=== PATIENT | female | born 1945 | race Caucasian/White ===

== ENCOUNTER → 2017-04-16 | Outpatient (CLI) | payer OTHER | LOC: BMCIMAGING 08:48 | PROVIDERS: ATTEND Internal Medicine | DX: Z12.31 Encounter for screening mammogram for malignant neoplasm of breast (principal) | CPT/HCPCS: G0202 ==

== ENCOUNTER → 2017-04-23 | Outpatient (CLI) | payer OTHER | LOC: BMCIMAGING 10:47 | PROVIDERS: ATTEND Internal Medicine | DX: R92.8 Other abnormal and inconclusive findings on diagnostic imaging of breast (principal) | CPT/HCPCS: G0206 ==

== ENCOUNTER → 2017-08-19 | Outpatient (CLI) | payer OTHER | LOC: BMCIMAGING 14:49 | PROVIDERS: ATTEND Orthopaedic Surgery Hand Surgery | DX: M25.711 Osteophyte, right shoulder (principal); M25.811 Other specified joint disorders, right shoulder ==

== ENCOUNTER → 2017-09-29 | Outpatient (CLI) | payer OTHER | LOC: FIMAGING 10:26 | PROVIDERS: ATTEND Orthopaedic Surgery Hand Surgery | DX: M25.811 Other specified joint disorders, right shoulder (principal); S43.431A Superior glenoid labrum lesion of right shoulder, initial encounter ==

== ENCOUNTER 2017-12-01 05:51 | Inpatient (IN) | payer OTHER ==
[2017-12-01] MEDS ORDERED: TRANEXAMIC ACID 2,000 MG in NS (SYRINGE) 50 ML MISC ONE (05:55)
[2017-12-01] MEDS ORDERED: ceFAZolin 2 GM/SWFI 2 GM/20 ML SYR IVP ONE (05:55)
[2017-12-01] MEDS ORDERED: LR 1,000 ML IV ONE (05:57)
--- NOTE | 2017-12-01 06:49 | PDHPUP ---
History & Physical Update H&P update statement: This history and physical update is based on an assessment of the patient which was completed after admission or registration (within 24 hours), but prior to the surgery/procedure. H&P update: H&P reviewed & patient examined, no change in patient's condition since H&P completed
[2017-12-01] MEDS ORDERED: BUPIVACAINE/EPI 0.5% 30 ML SDV ONE ×2 (06:50→07:20)
[2017-12-01] MEDS ORDERED: BACITRACIN 50,000 UNITS/10 ML SYR IRR ONE (06:51)
[2017-12-01] MEDS ORDERED: POLYMYXIN B SULFATE 500,000 UNIT/10 ML SYR IRR ONE (06:51)
[2017-12-01] MEDS ORDERED: MIDAZOLAM 2 MG/2 ML VIAL ONE (07:08)
[2017-12-01] MEDS ORDERED: MIDAZOLAM 2 MG/2 ML VIAL IVP ONE (07:09)
--- NOTE | 2017-12-01 07:10 | PDANEPAE ---
ANE Past Medical History - Cardiovascular History Hx Hypertension: Yes Hx Arrhythmias: No Hx Chest Pain: No Hx Coronary Artery / Peripheral Vascular Disease: No Hx CHF / Valvular Disease: No Hx Palpitations: No - Pulmonary History Hx COPD: No Hx Asthma/Reactive Airway Disease: No Hx Recent Upper Respiratory Infection: No Hx Oxygen in Use at Home: No Hx Sleep Apnea: No Sleep Apnea Screening Result - Last Documented: Negative - Neurologic History Hx Cerebrovascular Accident: No Hx Seizures: No Hx Dementia: No Neurologic History Comment: hx of tia's - Endocrine History Hx Diabetes: No Obesity: mild - Renal History Hx Renal Disorders: No - Liver History Hx Hepatic Disorders: No - Neurological & Psychiatric Hx Hx Neurological and Psychiatric Disorders: No - Cancer History Hx Cancer: No - Congenital Disorder History Hx Congenital Disorders: No - GI History GERD: no Hx Gastrointestinal Disorders: No - Chronic Pain History Chronic Pain: No - Surgical History Prior Surgeries: L hip replacement ANE Review of Systems Review of Systems: - Exercise capacity METS (RN): 5 METS ANE Patient History - Allergies Allergies/Adverse Reactions: No Known Allergies Allergy (Verified 10/28/17 10:59) - Home Medications Home Medications: Acetaminophen [Arthritis Pain Relief] 650 mg PO DAILY 10/23/17 [Last Taken 11/30] Diltiazem HCl [Cartia XT 240mg] 240 mg PO DAILY 10/23/17 [Last Taken 12/01/17] Gabapentin [Neurontin 100 MG (*)] 100 mg PO DAILY 10/23/17 [Last Taken 12/01/17] Herbals/Supplements -Info Only 1 ea PO DAILY 10/23/17 [Last Taken 11/01/17] Ibuprofen [Motrin (*)] 200 mg PO DAILY 10/23/17 [Last Taken 11/30/17] Levothyroxine [Synthroid 88 mcg (*)] 88 mcg PO DAILY06 10/23/17 [Last Taken ] Polyethylene Glycol 3350 [Miralax 17 gm (*)] 17 gm PO DAILY 10/23/17 [Last Taken 11/30/17] Propylene Glycol/Peg 400 [Systane Ultra 0.4-0.3% Eye Drp] 1 drop OP HS 10/23/17 [Last Taken 11/30/17] Sertraline HCl [Zoloft 50mg (*)] 50 mg PO DAILY 10/23/17 [Last Taken 12/01/17] Venlafaxine HCl [Venlafaxine 75MG (*)] 75 mg PO DAILY 10/23/17 [Last Taken 12/01] - NPO status NPO Since - Liquids (Date): 12/01/17 NPO Since - Liquids (Time): 05:15 NPO Since - Solids (Date): 11/30/17 NPO Since - Solids (Time): 19:30 - Anes Hx Anes Hx: post operative nausea and vomiting - Smoking Hx Smoking Status: Former smoker Marijuana use: No - Family Anes Hx Family Hx Anesthesia Complications: none ANE Labs/Vital Signs - Vital Signs Blood Pressure: 159/88 Heart Rate: 69 Respiratory Rate: 16 O2 Sat (%): 93 Height: 165.1 cm Weight: 68.039 kg ANE Physical Exam - Airway Neck exam: FROM Mallampati Score: Class 2 Mouth exam: normal dental/mouth exam - Pulmonary Pulmonary: no respiratory distress, no rales or rhonchi, clear to auscultation - Cardiovascular Cardiovascular: regular rate and rhythym, no murmur, rub, or gallop - ASA Status ASA Status: II ANE Anesthesia Plan Anesthesia Plan: GA w LMA Regional Anesthesia: single shot NB, interscalene BP NB
[2017-12-01] MEDS ORDERED: VANCOMYCIN 1 GM VIAL ONE (07:14)
[2017-12-01] MEDS ORDERED: DEXAMETHASONE 10 MG/ML VIAL ONE (07:20)
[2017-12-01] MEDS ORDERED: fentaNYL 100 MCG/2 ML INJ ONE (07:22)
[2017-12-01] MEDS ORDERED: ONDANSETRON 4 MG/2 ML VIAL ONE ×2 (07:22→07:44)
[2017-12-01] MEDS ORDERED: LIDOCAINE 2% JELLY 5 ML TUBE ONE (07:22)
[2017-12-01] MEDS ORDERED: PROPOFOL 200 MG/20 ML VIAL ONE (07:22)
[2017-12-01] MEDS ORDERED: DEXAMETHASONE 4 MG/ML VIAL ONE (07:22)
[2017-12-01] MEDS ORDERED: LIDOCAINE 2% 5 ML SDV ONE ×2 (07:23)
[2017-12-01] MEDS ORDERED: KETOROLAC 30 MG/1 ML SDV ONE (10:36)
[2017-12-01] MEDS ORDERED: ONDANSETRON 4 MG/2 ML VIAL IVP PRN ×2 (10:43→12:05)
[2017-12-01] MEDS ORDERED: PROMETHAZINE HCL 25 MG/ML INJ IVP PRN (10:43)
[2017-12-01] MEDS ORDERED: LABETALOL HCL 5 MG/ML 20 ML MDV IVP PRN (10:43)
[2017-12-01] MEDS ORDERED: NALOXONE HCL 0.4 MG/ML INJ IVP PRN (10:43)
[2017-12-01] MEDS ORDERED: ENALAPRILAT DIHYDRATE 1.25 MG/ML VIAL IVP PRN (10:43)
[2017-12-01] MEDS ORDERED: DIAZEPAM 5 MG/ML 1 ML SYR IVP PRN (10:43)
[2017-12-01] MEDS ORDERED: LR 500 ML IV PRN (10:43)
[2017-12-01] MEDS ORDERED: ACETAMINOPHEN 500 MG TAB PO PRN (10:43)
[2017-12-01] MEDS ORDERED: fentaNYL 100 MCG/2 ML INJ IVP PRN (10:43)
[2017-12-01] MEDS ORDERED: OXYCODONE/APAP 5/325 TAB PO PRN (10:43)
[2017-12-01] MEDS ORDERED: ONDANSETRON DISINTEGRATING 4 MG TAB PO PRN (12:05)
--- NOTE | 2017-12-01 12:15 | POSTANESTH ---
Post Anesthetic Evaluation Cardiovascular Status: Similar to Pre-Op Cond Respiratory Status: Normal, Stable, Similar to Pre-op Cond. Level of Consciousness/Mental Status: Can Participate in Eval, Alert and Oriented Pain Control: Adequate, Prn Tx Ordered Nausea/Vomiting Control: Adequate, Prn Tx Ordered Complications Possibly Related to Anesthesia: None Noted (Excellent analgesia.)
[2017-12-01] MEDS ORDERED: LR 1,000 ML IV SCH (12:30)
[2017-12-01] MEDS ORDERED: ACETAMINOPHEN 325 MG TAB PO SCH (14:00)
[2017-12-01] MEDS ORDERED: ceFAZolin 2 GM/DEXTROSE 100 ML IV SCH (14:00)
[2017-12-01] MEDS: ACETAMINOPHEN 500 MG TAB PO SCH ×2 (14:57→21:45)
[2017-12-01] MEDS: ceFAZolin 2 GM/SWFI 2 GM/20 ML SYR IVP SCH ×2 (15:16→21:48)
[2017-12-01] MEDS: oxyCODONE IR 5 MG TAB PO PRN ×3 (15:35→23:49)
--- NOTE | 2017-12-01 17:36 | PDGENHP ---
History and Physical History and Physical: CC: L leg injury
[2017-12-01] MEDS: KETOROLAC 15 MG/1 ML SDV IVP SCH ×2 (18:44→23:49)
[2017-12-01] MEDS ORDERED: SYSTANE ULTRA EACHEYE SCH (21:00)
[2017-12-01] MEDS ORDERED: EYE EACHEYE SCH (21:00)
[2017-12-02] MEDS: oxyCODONE IR 5 MG TAB PO PRN ×3 (02:25→12:41)
[2017-12-02 04:37] VITALS: RESP 16
[2017-12-02] MEDS: ACETAMINOPHEN 500 MG TAB PO SCH ×2 (05:13→12:44)
[2017-12-02] MEDS: KETOROLAC 15 MG/1 ML SDV IVP SCH ×2 (05:14→12:31)
[2017-12-02] MEDS ORDERED: LEVOTHYROXINE 88 MCG TAB PO SCH (06:00)
--- NOTE | 2017-12-02 08:34 | SOAPPROG ---
SOAP Progress Note Assessment/Plan: Assessment: POD #1 s/p R TSA -doing well this am -labs and vitals wnl and stable Plan: -PT/OT this am -plan d/c home if cleared by PT 12/02/17 08:39 Subjective: Doing very well this morning. Pain has been controlled with the current regimen. C/o some sharp pain with deep inspiration when using the IS. Eager to go home. Objective: Vital Signs Temp Pulse Resp BP Pulse Ox 36.7 C 70 16 113/69 93 12/02/17 08:00 12/02/17 08:00 12/02/17 08:00 12/02/17 08:00 12/02/17 08:00 Laboratory Results 12/02/17 04:41 12/01/17 12/02/17 12/03/17 05:59 05:59 05:59 Intake Total 1615 Output Total 350 Balance 1265 Gen: NAD, resting comfortably R shoulder -dressing in place, polar care over shoulder -intact AIN/PIN/ulnar motor -sensation returning to digits -sling in place - Time Spent With Patient Time Spent With Patient: 15 min - Pending Discharge Pending Discharge Within 24 Hours: Yes Pending Discharge Date: 12/03/17 Pending Discharge Time: 11:00 ICD10 Worksheet Patient Problems: Problems Problem Status Onset Glenohumeral arthritis Acute - ICD10 Problem Qualifiers (1) Glenohumeral arthritis
[2017-12-02] MEDS ORDERED: GABAPENTIN 100 MG CAP PO SCH (09:00)
[2017-12-02] MEDS ORDERED: SERTRALINE HCL 50 MG TAB PO SCH (09:00)
[2017-12-02] MEDS ORDERED: POLYETHYLENE GLYCOL 3350 17 GM PKT PO SCH (09:00)
--- NOTE | 2017-12-02 10:36 | ASMTCMCOM ---
CM Note CM Note Notes: Patient is POD #[address] Martínez. She is well-supported at home by her Devante and daughter Denise. She will follow up with Dr Martínez at scheduled intervals and they will make an outpatient therapy plan. No d.c needs identified. Date Signed: 12/02/2017 10:36 AM Electronically Signed By:Tita Gutierres RN
[2017-12-02 11:43] VITALS: BP 121/81; PULSE 82; TEMP 97.9; O2SAT 91
[2017-12-02] MEDS: DILTIAZEM XR 240 MG CAP PO SCH ×2 (12:23→12:31)
[2017-12-02] MEDS: VENLAFAXINE HCL 75 MG TAB PO SCH ×2 (12:30→12:42)
--- NOTE | 2017-12-02 20:17 | GOP ---
[f rep st] OPERATIVE REPORT DATE OF OPERATION: 12/01/2017 SURGEON: Renzo Martínez MD PREOPERATIVE DIAGNOSIS: Right shoulder osteoarthritis. POSTOPERATIVE DIAGNOSIS: Right shoulder osteoarthritis. PROCEDURE PERFORMED: Right total shoulder arthroplasty. FINDINGS: ESTIMATED BLOOD LOSS: 350. INDICATIONS: This patient is a 72-year-old female seen and followed by me in the office for shoulder pain. She was initially treated conservatively with injections and physical therapy. After these had failed, an MRI was performed. MRI showed end-stage osteoarthritis of the glenohumeral joint with large inferior, anterior and posterior osteophytes, loss of joint space, and some mild posterior wear of the glenoid with large osteophytes. The rotator cuff appeared intact. As she failed conservative treatment, a total shoulder arthroplasty is indicated . Discussed with her the risks and benefits of total shoulder arthroplasty at length. Risks include pain, bleeding, infection, damage to surrounding structures, possible joint infection, dislocation, subscapularis failure, rotator cuff failure necessitating revision to reverse total shoulder, need for further operations, stiffness, loss of function. The patient understood the risks and she wished to proceed. DESCRIPTION OF PROCEDURE: The patient was seen in the preoperative holding area. She was given the opportunity to ask questions. All her questions were answered. Consent was signed. Surgical site was marked. She was then taken to the operative suite. Care was taken to transfer the patient from [facility] to the operating room table and great care was taken to pad all bony prominences. General anesthesia was induced by the anesthesia team. A time-out was called including surgical and anesthesia teams confirming the site and surgical procedure to be performed. The patient was very carefully placed in a beach chair position at about 45 degrees. She was prepped and draped in the usual sterile fashion. Of note, just prior to surgery I had the patient prepped for skin with benzoyl peroxide to decrease contamination with P. acnes. After prepping the skin, vanc powder was used over the skin. A knife was used and discarded. The skin was carefully then opened with a Bovie. I carefully dissected down to the level of the deltopectoral interval. A standard deltopectoral approach was performed and the deltopec space was opened. The clavipectoral fascia was opened. A deltoid retractor was placed underneath the subdeltoid space as the subcoracoid space was developed. The bicipital groove was opened and the tendon was removed from the groove. The biceps was followed into the rotator interval. The biceps was then tenodesed to the pectoralis insertion with #2 FiberWire. The biceps was then cut. The subscapularis was defined. A saw was used to perform a lesser trochanter osteotomy. Number 2 FiberWire was then used to tack the lateral branch of the subscapularis with [id number]. The humerus was then externally rotated to dislocate it. The inferior capsule was taken down. The articular margin was defined. The rotator cuff was inspected; it was in good shape. The osteophytes were then removed with a rongeur. The articular margin was again defined. A Wi-Chi hand guide was used. The cut was performed. A head protector was then placed. Attention was then turned to the glenoid. The arm was abducted and externally rotated. A fukuda was placed over the posterior glenoid and anterior glenoid retractor over the anterior glenoid. The glenoid sizer was then placed. A guide pin was placed. The reamer was then used to ream the glenoid. The drill for the central Regenerex post was used. I noted with the peg placed an immediate perforation on the post. However, there was good bony contact. Then drilled for the post. I then drilled for the pegs. The anterior pegs slightly perforated. Trialed a glenoid. This was flush. I irrigated copiously with pulse lavage. During the approach and up to this point of the glenoid, the vanc powder was used periodically. Some bone graft was placed into the peg holes to prevent any leak of cement. The cement was mixed. The Regenerex peg was fixed to the glenoid and this was then impacted in. This was held until the cement hardened. Our attention was then again turned to the humerus. The humerus was then placed back in the shoulder. The canal broaches were first used, the size 9, and the rasps were used until a size 9 would fit. The Domelock system was then placed onto the rasp to dial in the version of the head. The above-mentioned head was chosen. This was trialed. This had a nice reduction and felt stable. This head was then chosen and was assembled on the back table. The version chosen was placed into the Domelock to the head and the stem was then chosen, and this was mated to the stem. Again, the canal was pulse lavaged and vanc powder was placed in the canal. Prior to placing the stem, two FiberWires were placed into the medial aspect of the lesser tuberosity as our medial row for the subscapular repair. These were withdrawn in the stem. The stem was then impacted and it was flush with the bone anteriorly. The position was good. Reduction was performed. The patient had full range of motion with no impingement. The head could be translated back about 50% and it snapped back nicely, indicating good stability. We then commenced with repair of the lateral facet osteotomy. The 2 interval sutures placed through the tuberosity were then placed medial to the LTO. These were tied down and the 3 lateral sutures were then placed through bone and into the bicipital groove. These then were tied down as well. The rotator interval was closed with #2 FiberWire. Again, the shoulder was irrigated. Two grams of TXA were placed in the shoulder and then 20 mL of Marcaine and Toradol were then placed into the shoulder. The rotator interval was marked with a FiberWire and then placed with 0 Vicryl and then the wound was closed in layers with 0 Vicryl, 2-0 Monocryl and 4-0 Monocryl. Steri- Strips were applied. Patient was placed in the sling. She was awakened from general anesthesia and transferred in stable condition and taken to PACU in stable condition. IMPLANTS USED: Aaron anatomical shoulder, size 9 stem, size 4-19 head. Biomet size small 4 mm glenoid with Regenerex titanium glenoid post. POSTOPERATIVE CONDITION: Stable. POSTOPERATIVE PLAN: The patient is admitted for observation and IV pain control. She will be discharged home when her pain is controlled and she clears therapy. /[id number]/MODL MTDD
== END 2017-12-02 14:15 | disposition home or self-care (01) | DRG 483 ==
LOC: F3N 05:51
PROVIDERS: ADMIT Orthopaedic Surgery Hand Surgery; ATTEND Orthopaedic Surgery Hand Surgery
PROC: 0RRJ0JZ Replacement of Right Shoulder Joint with Synthetic Substitute, Open Approach (ICD-10-PCS; principal; 2017-12-01 07:15)
DX: M19.011 Primary osteoarthritis, right shoulder (principal); I10 Essential (primary) hypertension; Z86.73 Personal history of transient ischemic attack (TIA), and cerebral infarction without residual deficits; Z96.642 Presence of left artificial hip joint
CPT/HCPCS: 97161-GP; 97165-GO; 97535-GO; C1713; G8978-GP-CI; G8979-GP-CI; G8980-GP-CI; G8987-GO-CI; G8988-GO-CI; G8989-GO-CI; J0690; J1100; J1885; J2250; J2405; J2704; J3010; J3370

== ENCOUNTER → 2017-12-15 | Outpatient (CLI) | payer OTHER | LOC: BMCIMAGING 15:56 | PROVIDERS: ATTEND Orthopaedic Surgery Hand Surgery | DX: Z47.1 Aftercare following joint replacement surgery (principal); Z96.611 Presence of right artificial shoulder joint ==

== ENCOUNTER → 2018-02-03 | Outpatient (CLI) | payer OTHER | LOC: BMCIMAGING 10:20 | PROVIDERS: ATTEND Orthopaedic Surgery Hand Surgery | DX: Z47.1 Aftercare following joint replacement surgery (principal); Z96.611 Presence of right artificial shoulder joint ==

== ENCOUNTER → 2018-05-05 | Outpatient (CLI) | payer OTHER | LOC: BMCIMAGING 09:00 | PROVIDERS: ATTEND Internal Medicine | DX: Z12.31 Encounter for screening mammogram for malignant neoplasm of breast (principal); Z96.611 Presence of right artificial shoulder joint ==

== ENCOUNTER → 2018-11-16 | Outpatient (CLI) | payer OTHER | LOC: BMCIMAGING 13:47 | PROVIDERS: ATTEND Internal Medicine | DX: R05 Cough (principal) ==

== ENCOUNTER → 2018-11-22 | Outpatient (CLI) | payer OTHER | LOC: BMCIMAGING 11:26 | PROVIDERS: ATTEND Internal Medicine | DX: R93.89 Abnormal findings on diagnostic imaging of other specified body structures (principal) ==